=== PATIENT | male | born 1965 | race Caucasian/White ===

== ENCOUNTER 2018-11-24 08:00 | Outpatient (CLI) | payer BC | END 2018-11-24 23:59 | disposition home or self-care (01) | LOC: LAB.R 08:00 | PROVIDERS: ATTEND Family Medicine | DX: L98.9 Disorder of the skin and subcutaneous tissue, unspecified (principal) | CPT/HCPCS: 87070; 87205 ==

== ENCOUNTER 2019-03-30 11:15 | Outpatient (CLI) | payer BC ==
--- NOTE | 2019-03-30 14:09 | XRAY Report ---
Reason: COUGH Procedure Date: 03/30/2019 Accession Number: [id number] / [id number] Procedure: WCP - Chest 2 View X-Ray CPT Code: 29215 Final Report FULL RESULT: EXAM: CHEST RADIOGRAPHY EXAM DATE: 03/30/2019 11:15 AM. CLINICAL HISTORY: Cough. COMPARISON: None. TECHNIQUE: 2 views. FINDINGS: Lungs/Pleura: No focal opacities evident. No pleural effusion. No pneumothorax. Normal volumes. Mediastinum: Heart and mediastinal contours are unremarkable. Other: None. IMPRESSION: No acute cardiopulmonary abnormality. RADIA
== END 2019-03-30 23:59 | disposition home or self-care (01) ==
LOC: DI.WCP 11:15
PROVIDERS: ATTEND Family Medicine
DX: R05 Cough (principal)
CPT/HCPCS: 71046

== ENCOUNTER 2019-12-07 08:51 | Outpatient (CLI) | payer BC ==
--- NOTE | 2019-12-07 09:39 | SLEEP CARE CONSULTATION ---
Information from patient questionnaire entered by Adore Flores. I have reviewed and concur with the information entered by Adore Flores. This document represents the service I personally performed and the decisions made by me, Deya Huang ARNP. History of Present Illness Service Date and Time: 12/07/2019 0851 Reason for Visit: New patient Chief Complaint: reports: Snoring (occasional), Other (my work sent me here). denies: Insomnia, Unrefreshed sleep, Excessive daytime sleepiness, Observed pauses in breathing, Fatigue, Frequent awakenings at night Date of Onset: don't know Usual bedtime: 8:30 pm Time it takes to fall asleep: 20 minutes Snores at night: No (don't know) Observed to quit breathing while asleep: No Sleeps alone due to snoring: No Number of times waking at night: 1 Reasons for waking at night: reports: Bathroom. denies: Choking, Snoring, Gasping for air Toss, Turn, or Twitch while sleeping: No Recalls having dreams: No Usually gets out of bed at: 5 am; weekends by 0700 Feels refreshed in the morning: Yes Morning headache: No Sleepy or fatigued during the day: No Ever fallen asleep while driving: No Takes day naps: Yes (once a week at most) Dreams during day naps: No Prior sleep studies: No Additional HPI information: I had the pleasure of seeing EWA NORRIS today regarding the possibility of him having a sleep disorder. He states his work sent him here because he has to have a DOT physical for his job. He went to a new doctor who told him he needed a sleep study test but due to pandemic was unable to get study done. He went back to his original doctor who cleared him and updated his DOT physical. He got a letter from his job stating a requirement that he complete a sleep study to continue working. He states he does snore occasionally according to his . He states as long as he gets to sleep at a good hour and does not have interruptions during the night he wakes up feeling rested. He denies daily excessive sleepiness or fatigue. He gets up during the night for the bathroom about once a night. He denies morning headaches. He has a history of hypertension and anxiety. - Parasomnia Symptoms Ever been unable to move upon waking from sleep: No Walks in sleep: No Talks in sleep: No Ever acted out dreams in sleep: No Ever felt weak in the knees when startled or emotional: No Bothered by creepy, crawly, restless sensations in legs: No Problems with memory or concentration: No Subjective Initial [place] Sleepiness Scale score: 6 (in 2020) Past Medical History Past Medical History: reports: Hypertension, Anxiety. 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 Patient is and lives in [place]. Have you smoked in the past 12 months: No Alcohol use: Yes Alcohol amount and frequency: 2 drinks 2 times a week Caffeine use: Yes Caffeine amount and frequency: 1 cup every morning of work Family History Family history of sleep disordered breathing: No Family Hx Sleep Apnea: Mother: Snoring Allergies and Home Medications Drug allergies reviewed: Yes (codiene (nausea), khurram) Home medication list reviewed: Yes Allergy and home medication list: Lisinopril 20 mg citalopram for anxiety Review of Systems Cardiovascular: reports: high blood pressure. denies: palpitations, chest pain, irregular heart rate or pulse, leg or foot swelling Respiratory: denies: shortness of breath Gastrointestinal: denies: heartburn, difficulty swallowing Urinary: denies: impotence Neurological: denies: headaches, seizure, head trauma, speech dysfunction, gait or balance problems Psychiatric: reports: anxiety. denies: Attention Deficit Hyperactivity, depression Ear/Nose/Throat: reports: tonsillectomy. denies: nasal congestion, sinus problems, nose bleeds, dry mouth/throat, injury to nose, wisdom teeth removed Endocrine: denies: thyroid disease Musculoskeletal: denies: joint pain, back pain, muscle pain or cramping, mobility problems Immunologic: reports: allergies to food or environment (pistachio, spring allergies) Physical Exam Blood Pressure: 134/78 Cuff size: long Heart Rate: 76 O2 Saturation: 98 Height: 5 ft 7 in Weight: 206 lb Body Mass Index: 32.2 BMI Classification: Obese Neck circumference: 17.5 (inches) HEENT: No craniofacial malformation Nostrils: patent to airflow Turbinates: normal Septum: deviated left Mouth and throat: narrow oropharynx Soft palate: normal Hard palate: arched Uvula: normal Uvula visualization: 25% Mallampati Class III Tongue: enlarged in size with teeth dubose on lateral edges Tonsils: absent bilaterally Chin and jaw: normal size and position Neck: normal w/o lymphadenopathy or thyromegaly Heart: regular rate and rhythm Lungs: clear bilaterally Impression and Plan 1. Suspected Obstructive Sleep Apnea-Hypopnea Syndrome, as suggested by a history of snoring and hypertension. I reviewed with patient that a narrow oropharynx and obesity are common predisposing factors for obstructive sleep apnea-hypopnea syndrome. I recommend proceeding to polysomnography to confirm the diagnosis and to assess severity. If the patient has significant sleep disordered breathing, a manual CPAP titration study will also be performed to find the optimal treatment pressure. I informed the patient of what the sleep studies involve and after some discussion, obtained agreement to proceed. The pathophysiology of obstructive sleep apnea-hypopnea syndrome was discussed with the patient and health risks of cardiovascular and cerebrovascular disease if not treated. AAS brochure for obstructive sleep apnea-hypopnea syndrome given and reviewed. Risks of drowsy driving discussed in detail and patient advised to avoid long distance driving and to well puller at the first sign of drowsiness. Patient agreed to plan. * Schedule polysomnography +- manual CPAP titration study. * Avoid long distance driving or driving when feeling sleepy. * Avoid alcohol, sedative and muscle relaxant around bedtime. * Attempt to lose weight. * Review instructions provided by trained office staff on how to prepare for the sleep study. * Return for follow-up after sleep study completed. Time Spent with Patient (minutes): 32
[2019-12-07 09:40] VITALS: BP 134/78
== END 2019-12-07 08:52 | disposition home or self-care (01) ==
LOC: SC 08:51
PROVIDERS: ATTEND Nurse Practitioner Family
DX: R06.83 Snoring (principal); I10 Essential (primary) hypertension; E66.9 Obesity, unspecified; Z68.32 Body mass index [BMI] 32.0-32.9, adult
CPT/HCPCS: 99204; 99212

== ENCOUNTER → 2020-01-18 | Outpatient (CLI) | payer BC ==
--- NOTE | 2020-01-18 14:19 | SLEEP CARE CONSULTATION ---
Information from patient questionnaire entered by Sophia Hutchins. I have reviewed and concur with the information entered by Sophia Hutchins. This document represents the service I personally performed and the decisions made by , Deya Huang ARNP. History of Present Illness Service Date and Time: 01/18/2020 1037 Initial [place] Sleepiness Scale score: 6 (in 2020) Current [place] Sleepiness Scale score: 11 Additional HPI information: EWA NORRIS returns via Telehealth visit for follow up of results of the recently performed home sleep study. His HST showed mild obstructive sleep apnea with an AHI of 12.3 and a [place] oxygen saturation of 83%. I explained the pathophysiology behind obstructive sleep apnea. We then spent quite a bit of time discussing different treatment options. For mild obstructive sleep apnea, surgery and oral appliance are alternatives to nasal CPAP therapy but in moderate or severe cases, nasal CPAP is the most effective and reliable treatment. After some discussion, the patient opted to go with the nasal CPAP therapy. Nasal autoCPAP set at 4-15 cmH20 will be ordered with rationale explained. A manual titration study will be ordered if unable to find optimal pressure with office adjustments. I explained how CPAP machine works and what to expect when using the machine. Using CPAP every night in order to get used to it was emphasized. Patient advised to put CPAP mask on before getting into bed so as not to fall asleep without CPAP. To assist acclimation to CPAP use, it could also be used for a short time during day while reading or watching TV. The patient was instructed to call the CPAP supplier to discuss any mechanical problem that may occur. If the mask given is uncomfortable or is difficult to keep on through the night even with adjustment, contact the CPAP supplier as many will replace with another mask style if notified before 30 days. If snoring or perceives is not getting enough air or too much air from the machine, notify this office. Patient counseled not drink alcohol less than 4 hours before bedtime as it can increase snoring and apnea. Patient was cautioned about risks of drowsy driving until sleepiness symptoms resolve. Sleep Study - Results Type of Sleep Study: Home sleep study Prior sleep studies: No Year and Where: 12/2019 [facility] Sleep Study results: Patient had an average AHI of 12.3 with a [place] oxygen saturation of 83%. Please see details in scanned document of sleep care outside study on 01/18/2020. Allergies and Home Medications Drug allergies reviewed: Yes (codiene) Home medication list reviewed: Yes (no changes) Review of Systems Review of systems same as previous: Yes (no changes) Physical Exam Vital signs obtained and entered by: Telehealth visit, no vitals obtained Height: 5 ft 7 in Impression and Plan 1. Obstructive Sleep Apnea-Hypopnea Syndrome, mild, with lowest oxygen saturation of 83%. Obviously this is the cause of the patients symptoms of snoring and excessive daytime sleepiness. Positive pressure therapy could benefit hypertension and anxiety. As mentioned above, the patient will be started on nasal autoCPAP therapy with pressure set at 4-15 cmH2O. A manual titration study will be completed if unable to find optimal treatment pressure with office adjustments. Compliance guidelines also reviewed. A copy of compliance guidelines will be given for reference at check out. * Nasal auto CPAP therapy, pressure at 4-15 cm H2O. * Attempt to lose weight. * Avoid alcohol consumption near bedtime. * Avoid supine sleep until using CPAP. * The patient is again cautioned about driving until sleepiness completely resolves. * Return one month after CPAP obtained. I will assess response to therapy and compliance at that time. Counseling Topics: Weight loss health impact Visit Type: Telehealth Video Video Type: Doximity Patient Location: Home Location of Provider: Home Patient agrees and consents to this telehealth visit type: Yes Patient agrees to have their insurance billed: Yes Time Spent with Patient (minutes): 19 Provider Statement: I spent 100% of the Telehealth Video Call with the patient with greater than 50% spent counseling the patient and coordination of care.
== END ==
LOC: SC 10:37
PROVIDERS: ATTEND Nurse Practitioner Family
DX: G47.33 Obstructive sleep apnea (adult) (pediatric) (principal)

== ENCOUNTER 2020-07-31 10:31 | Outpatient (CLI) | payer BC ==
--- NOTE | 2020-07-31 11:07 | SLEEP CARE CONSULTATION ---
Information from patient questionnaire entered by Adore Flores. I have reviewed and concur with the information entered by Adore Flores. This document represents the service I personally performed and the decisions made by , Deya Huang ARNP. History of Present Illness Service Date and Time: 07/31/2020 1031 Previous diagnosis: Mild, Obstructive Sleep Apnea-Hypopnea Syndrome AHI: 12.3 (in 2019) Reason for follow up: first compliance Equipment type: CPAP Equipment obtained from: Other (Shannan Sauer, sleep motorcoach driver:) Mask style: Nasal pillows Mask brand: Resmed Backup mask available: No (will keep old mask when replaced) Last cushion change: 2 months Prior sleep studies: Yes Year and Where: 12/2019 - [facility] Type of Sleep Study: Home sleep study HPI additional information: EWA NORRIS was diagnosed to have mild, AHI 12.3, obstructive sleep apnea- hypopnea syndrome and returned today for CPAP therapy first compliance follow- up. CPAP Compliance Data - Data Reviewed with Patient Average duration of nightly device use: 7 hr 53 min Compliance rate %: 80 Current pressure setting (cmH2O): 4-15 (median 10.0, avg 12.9, max 14.3) Humidity settin Average residual AHI: 2.8 Subjective Missed days of use due to: reports: travel Patient concerns: denies: aerophagia, mask discomfort, air blowing in eyes, mask leak noise, condensation in mask/hose, nasal congestion, dry mouth, nose, throat, epistaxis, other Observed to snore while using device: No Current pressure setting perceived as: comfortable On therapy, patient: reports: sleeping better, awakening more refreshed, being more awake and alert during the day, more rested overall. denies: drowsiness while driving Initial [place] Sleepiness Scale score: 6 (in 2020) Current [place] Sleepiness Scale score: 6 Allergies and Home Medications Home medication list reviewed: Yes (no new meds) Review of Systems Review of systems same as previous: Yes (no changes) Physical Exam Heart Rate: 77 O2 Saturation: 96 Height: 5 ft 7 in Weight: 213 lb Body Mass Index: 33.3 BMI Classification: Obese Impression and Plan 1. Obstructive Sleep Apnea-Hypopnea Syndrome, mild, with good treatment com pliance and good apnea control. On CPAP therapy, the patient has better sleep quality and is more rested overall. I will adjust his pressure to reflect what he has been using to 12-15 cmH2O. Patient advised to contact me if pressure change is uncomfortable so that it can be adjusted. Goals for apnea control discussed. He has not complaints of aerophagia, mask discomfort, mask leak noise, nasal congestion, skin irritation or oral dryness. He will follow up in 1-2 months. He voiced understanding. Patient's apnea severity and rationale for treatment to reduce apnea, improve sleep quality and reduce cardiovascular and cerebrovascular events was reviewed. I also reviewed the benefit of consistent device use of CPAP for hypertension and anxiety. * Change auto CPAP pressure to 12-15 cmH2O * Notify me if snoring with mask or feeling that the pressure is too much or too little * Attempt to lose weight * Call this office if any problems using CPAP * Return for follow up in 1-2 months, or sooner if concerns arise Counseling Topics: Spare mask, Weight loss health impact Visit Type: In Office Time Spent with Patient (minutes): 21 Provider Statement: I spent 100% of the Face to Face Visit with the patient with greater than 50% spent counseling the patient and coordination of care.
== END 2020-07-31 10:32 | disposition home or self-care (01) ==
LOC: SC 10:31
PROVIDERS: ATTEND Nurse Practitioner Family
DX: G47.33 Obstructive sleep apnea (adult) (pediatric) (principal); E66.9 Obesity, unspecified; Z68.33 Body mass index [BMI] 33.0-33.9, adult
CPT/HCPCS: 99212; 99213

== ENCOUNTER 2020-08-14 08:00 | Outpatient (CLI) | payer BC ==
[2020-08-14 18:33] LABS: BASOPHILS # (AUTO) 0.1 10^3/uL (0.0-0.1); BASOPHILS % (AUTO) 0.8 %; EOSINOPHILS # (AUTO) 0.3 10^3/uL (0.0-0.7); EOSINOPHILS % (AUTO) 4.2 %; HCT - HEMATOCRIT 46.1 % (42.0-52.0); HGB - HEMOGLOBIN 14.9 g/dL (14.0-18.0); LYMPHOCYTES # (AUTO) 1.8 10^3/uL (1.5-3.5); LYMPHOCYTES % (AUTO) 29.6 %; MEAN CORPUSCULAR HEMOGLOBIN 32.6 pg (27.0-31.0); MEAN CORPUSCULAR HGB CONC 32.3 g/dL (32.0-36.0); MEAN CORPUSCULAR VOLUME 100.9 fL (80.0-94.0); MEAN PLATELET VOLUME 9.7 fL (7.4-11.4); MONOCYTES # (AUTO) 0.8 10^3/uL (0.0-1.0); MONOCYTES % (AUTO) 13.9 %; PLT - PLATELET COUNT 269 10^3/uL (130-450); RED BLOOD COUNT 4.57 10^6/uL (4.70-6.10); RED CELL DISTRIBUTION WIDTH 13.2 % (12.0-15.0); WHITE BLOOD COUNT 5.9 x10^3/uL (4.8-10.8)
[2020-08-14 18:44] LABS: ALBUMIN 4.4 g/dL (3.2-5.5); ALBUMIN/GLOBULIN RATIO 1.5 (1.0-2.2); ALKALINE PHOSPHATASE 74 IU/L (42-121); ALT ALANINE AMINOTRANSFERASE 31 IU/L (10-60); AST ASPARTATE AMINOTRANSFERASE 28 IU/L (10-42); BILIRUBIN,TOTAL 0.6 mg/dL (0.2-1.0); BUN - BLOOD UREA NITROGEN 15 mg/dL (6-20); CALCIUM 9.9 mg/dL (8.5-10.3); CARBON DIOXIDE - CO2 27 mmol/L (21-32); CHLORIDE 104 mmol/L (101-111); CHOL/HDL RATIO 2.6 (<5.0); CHOLESTEROL 137 mg/dL; CREATININE 0.9 mg/dL (0.6-1.2); GFR - MDRD 87 (>89); GLUCOSE 100 mg/dL (70-100); HDL CHOLESTEROL 52 mg/dL; LDL CHOLESTEROL,CALCULATED 31 mg/dL; LDL/HDL RATIO 0.6 (<3.6); POTASSIUM 4.4 mmol/L (3.5-5.0); SODIUM 140 mmol/L (135-145); TOTAL PROTEIN 7.4 g/dL (6.7-8.2); TRIGLYCERIDES 269 mg/dL; VLDL CHOLESTEROL 54 mg/dL
[2020-08-14 19:05] LABS: ESTIMATED AVERAGE GLUCOSE 114 mg/dL (70-100); HEMOGLOBIN A1c% 5.6 % (4.27-6.07)
== END 2020-08-14 23:59 | disposition home or self-care (01) ==
LOC: LAB.WCP 08:00
PROVIDERS: ATTEND Family Medicine
DX: I10 Essential (primary) hypertension (principal); E78.1 Pure hyperglyceridemia; R73.03 Prediabetes; Z12.5 Encounter for screening for malignant neoplasm of prostate
CPT/HCPCS: 36415; 80053; 80061; 83036; 83721; 84153; 85025

== ENCOUNTER 2020-09-27 16:48 | Outpatient (CLI) | payer BC ==
--- NOTE | 2020-09-27 17:12 | SLEEP CARE CONSULTATION ---
Information from patient questionnaire entered by Adore Flores. I have reviewed and concur with the information entered by Adore Flores. This document represents the service I personally performed and the decisions made by , Deya Huang ARNP. History of Present Illness Service Date and Time: 09/27/2020 1648 Previous diagnosis: Mild, Obstructive Sleep Apnea-Hypopnea Syndrome AHI: 12.3 (in 2019) Reason for follow up: other (2 month with pressure change) Equipment type: CPAP Equipment obtained from: Other ([facility]; getting supplies as needed) Mask style: Nasal pillows Backup mask available: No (will keep an old one when replaced) Last cushion change: washes daily Prior sleep studies: Yes Year and Where: 12/2019 - [facility] Type of Sleep Study: Home sleep study HPI additional information: EWA NORRIS was diagnosed to have mild, AHI 12.3, obstructive sleep apnea- hypopnea syndrome and returned today for CPAP therapy 2 month pressure change follow-up. CPAP Compliance Data - Data Reviewed with Patient Average duration of nightly device use: 7 hr 24 min Compliance rate %: 83 (60 days) Current pressure setting (cmH2O): 12-15 Humidity settin Average residual AHI: 2.1 Subjective Missed days of use due to: reports: family emergency Patient concerns: reports: condensation in mask/hose (one time but he had pulled the machine off side table and water got into hose). denies: aerophagia, mask discomfort, air blowing in eyes, mask leak noise, nasal congestion, dry mouth, nose, throat, epistaxis, other Observed to snore while using device: No Current pressure setting perceived as: comfortable On therapy, patient: reports: sleeping better, awakening more refreshed, being m ore awake and alert during the day, more rested overall. denies: drowsiness while driving Initial [place] Sleepiness Scale score: 6 (in 2020) Current [place] Sleepiness Scale score: 5 Allergies and Home Medications Home medication list reviewed: Yes (no changes) Review of Systems Review of systems same as previous: Yes (no changes) Physical Exam Heart Rate: 104 O2 Saturation: 98 Height: 5 ft 7 in Weight: 211 lb Body Mass Index: 33.0 BMI Classification: Obese Impression and Plan 1. Obstructive Sleep Apnea-Hypopnea Syndrome, mild, with good treatment compliance and good apnea control. On CPAP therapy, the patient has better sleep quality and is more rested overall. He is satisfied with his treatment and has significant improvement of his sleep apnea. He feels the pressure is comfortable at his current setting and has not been having any aerophagia. He is getting more comfortable with the CPAP mask and adjusting as needed. He had one night where he heard gurgling sounds that woke him up and found that he had pulled his CPAP off the nightstand and got water into the tubing. He has had no other issues with CPAP use. I will follow-up with him in about 3 months. Patient's apnea severity and rationale for treatment to reduce apnea, improve sleep quality and reduce cardiovascular and cerebrovascular events was reviewed. I also reviewed the benefit of consistent device use of CPAP for hypertension and anxiety. * Continue auto CPAP pressure at 12-15 cmH2O * Notify me if snoring with mask or feeling that the pressure is too much or too little * Attempt to lose weight * Call this office if any problems using CPAP * Return for follow up in 3 months, or sooner if concerns arise Counseling Topics: Spare mask, Weight loss health impact Visit Type: In Office Time Spent with Patient (minutes): 16 Provider Statement: I spent 100% of the Face to Face Visit with the patient with greater than 50% spent counseling the patient and coordination of care.
== END 2020-09-27 16:49 | disposition home or self-care (01) ==
LOC: SC 16:48
PROVIDERS: ATTEND Nurse Practitioner Family
DX: G47.33 Obstructive sleep apnea (adult) (pediatric) (principal); E66.9 Obesity, unspecified; Z68.33 Body mass index [BMI] 33.0-33.9, adult
CPT/HCPCS: 99212

== ENCOUNTER 2021-01-30 12:43 | Outpatient (CLI) | payer BC ==
[2021-01-30 13:24] VITALS: BP 140/74
--- NOTE | 2021-01-30 13:24 | SLEEP CARE CONSULTATION ---
Information from patient questionnaire entered by González Glaser MA. I have reviewed and concur with the information entered by González Glaser MA. This document represents the service I personally performed and the decisions made by , Deya Huang ARNP. History of Present Illness Service Date and Time: 01/30/2021 1243 Previous diagnosis: Mild, Obstructive Sleep Apnea-Hypopnea Syndrome AHI: 12.3 (in 2019) Reason for follow up: three month Equipment type: CPAP Equipment obtained from: [employer] (Shannan Sauer, sleep college coach: getting supplies as needed) Mask style: Nasal pillows Backup mask available: No (will keep old mask when replaced) Last cushion change: 4 weeks Prior sleep studies: Yes Year and Where: 12/2019 - [facility] Type of Sleep Study: Home sleep study HPI additional information: EWA NORRIS was diagnosed to have mild, AHI 12.3, obstructive sleep apnea- hypopnea syndrome and returned today for CPAP therapy three month follow-up. Sleep Study - Results Type of Sleep Study: Home sleep study Prior sleep studies: Yes Year and Where: 12/2019 - [facility] CPAP Compliance Data - Data Reviewed with Patient Average duration of nightly device use: 7 hours 18 minutes Compliance rate %: 59 Current pressure setting (cmH2O): 12-15 Average residual AHI: 1.7 Subjective Missed days of use due to: reports: family emergency (, had heart attack), mask issues (headgear strap broke), travel Patient concerns: denies: aerophagia, mask discomfort, air blowing in eyes, mask leak noise, condensation in mask/hose, nasal congestion, dry mouth, nose, throat, epistaxis, other Observed to snore while using device: No Current pressure setting perceived as: comfortable On therapy, patient: reports: sleeping better, awakening more refreshed, being more awake and alert during the day, more rested overall. denies: drowsiness while driving Initial [place] Sleepiness Scale score: 6 (in 2019) Current [place] Sleepiness Scale score: 5 (2020) Allergies and Home Medications Home medication list reviewed: Yes (no changes) Review of Systems Review of systems same as previous: Yes (no changes) Physical Exam Vital signs obtained and entered by: ROSS Cochran AAROBER Blood Pressure: 140/74 (left) Cuff size: wrist Heart Rate: 78 O2 Saturation: 92 (with mask) Height: 5 ft 7 in Weight: 209 lb (with boots) Body Mass Index: 32.7 BMI Classification: Obese Impression and Plan 1. Obstructive Sleep Apnea-Hypopnea Syndrome, mild, with fair treatment compliance and good apnea control. On CPAP therapy, the patient has better sleep quality and is more rested overall. Patient states he had to fly back home for a of a family member. While he was away his had a heart attack. So, he has been dealing with some family emergencies. He also got a new headset and other equipment and started using them. He states the headset strap broke and he cannot keep the mask on his face. I advised him to call his [employer] company as the headset may be defective so that he can get another one. He may end up having to pay for another headset so that he may use his CPAP mask. He voiced understanding and agreement with plan. Patient's apnea severity and rationale for treatment to reduce apnea, improve sleep quality and reduce cardiovascular and cerebrovascular events was reviewed. I also reviewed the benefit of consistent device use of CPAP for hypertension and anxiety. Patient was encouraged to lose weight for their overall health and to reduce apneas. * Continue auto CPAP pressure at 12-15 cmH2O * Notify me if snoring with mask or feeling that the pressure is too much or too little * Attempt to lose weight * Call this office if any problems using CPAP * Return for follow up in 6 months, or sooner if concerns arise Counseling Topics: Spare mask, Weight loss health impact Visit Type: In Office Time Spent with Patient (minutes): 20 Provider Statement: I spent 100% of the Face to Face Visit with the patient with greater than 50% spent counseling the patient and coordination of care.
== END 2021-01-30 12:44 | disposition home or self-care (01) ==
LOC: SC 12:43
PROVIDERS: ATTEND Nurse Practitioner Family
DX: G47.33 Obstructive sleep apnea (adult) (pediatric) (principal); E66.9 Obesity, unspecified; Z68.32 Body mass index [BMI] 32.0-32.9, adult
CPT/HCPCS: 99212; 99213

== ENCOUNTER 2021-07-17 11:27 | Outpatient (CLI) | payer BC ==
[2021-07-17 18:54] LABS: BASOPHILS # (AUTO) 0.1 10^3/uL (0.0-0.1); BASOPHILS % (AUTO) 1.1 %; EOSINOPHILS # (AUTO) 0.2 10^3/uL (0.0-0.7); EOSINOPHILS % (AUTO) 4.2 %; HCT - HEMATOCRIT 45.6 % (42.0-52.0); HGB - HEMOGLOBIN 14.7 g/dL (14.0-18.0); LYMPHOCYTES # (AUTO) 1.3 10^3/uL (1.5-3.5); LYMPHOCYTES % (AUTO) 24.6 %; MEAN CORPUSCULAR HEMOGLOBIN 32.2 pg (27.0-31.0); MEAN CORPUSCULAR HGB CONC 32.2 g/dL (32.0-36.0); MEAN CORPUSCULAR VOLUME 99.8 fL (80.0-94.0); MEAN PLATELET VOLUME 9.6 fL (7.4-11.4); MONOCYTES # (AUTO) 0.6 10^3/uL (0.0-1.0); MONOCYTES % (AUTO) 10.5 %; NEUTROPHILS # (AUTO) 3.1 10^3/uL (1.5-6.6); NEUTROPHILS % (AUTO) 59.4 %; PLT - PLATELET COUNT 271 10^3/uL (130-450); RED BLOOD COUNT 4.57 10^6/uL (4.70-6.10); RED CELL DISTRIBUTION WIDTH 13.5 % (12.0-15.0); WHITE BLOOD COUNT 5.3 x10^3/uL (4.8-10.8)
[2021-07-17 19:28] LABS: ALBUMIN 4.3 g/dL (3.2-5.5); ALBUMIN/GLOBULIN RATIO 1.3 (1.0-2.2); ALKALINE PHOSPHATASE 86 IU/L (42-121); ALT ALANINE AMINOTRANSFERASE 29 IU/L (10-60); AST ASPARTATE AMINOTRANSFERASE 26 IU/L (10-42); BILIRUBIN,TOTAL 0.7 mg/dL (0.2-1.0); BUN - BLOOD UREA NITROGEN 15 mg/dL (6-20); CALCIUM 9.3 mg/dL (8.5-10.3); CARBON DIOXIDE - CO2 26 mmol/L (21-32); CHLORIDE 103 mmol/L (101-111); CHOL/HDL RATIO 3.2 (<5.0); CHOLESTEROL 174 mg/dL; CREATININE 0.9 mg/dL (0.6-1.2); GFR - MDRD 87 (>89); GLUCOSE 84 mg/dL (70-100); HDL CHOLESTEROL 54 mg/dL; LDL CHOLESTEROL,CALCULATED 89 mg/dL; LDL/HDL RATIO 1.6 (<3.6); POTASSIUM 4.6 mmol/L (3.5-5.0); SODIUM 138 mmol/L (135-145); TOTAL PROTEIN 7.7 g/dL (6.7-8.2); TRIGLYCERIDES 154 mg/dL; VLDL CHOLESTEROL 31 mg/dL
== END 2021-07-17 11:28 | disposition home or self-care (01) ==
LOC: LAB.N 11:27
PROVIDERS: ATTEND Family Medicine
DX: I10 Essential (primary) hypertension (principal); E78.1 Pure hyperglyceridemia; Z12.5 Encounter for screening for malignant neoplasm of prostate
CPT/HCPCS: 36415; 80053; 80061; 83721; 84153; 85025

== ENCOUNTER 2023-03-11 11:41 | Outpatient (CLI) | payer BC ==
[2023-03-11 17:56] LABS: BASOPHILS % (AUTO) 0.5 %; EOSINOPHILS # (AUTO) 0.2 10^3/uL (0.0-0.7); EOSINOPHILS % (AUTO) 3.1 %; HCT - HEMATOCRIT 43.8 % (42.0-52.0); HGB - HEMOGLOBIN 14.5 g/dL (14.0-18.0); LYMPHOCYTES # (AUTO) 1.5 10^3/uL (1.5-3.5); MEAN CORPUSCULAR HGB CONC 33.1 g/dL (32.0-36.0); MEAN CORPUSCULAR VOLUME 99.5 fL (80.0-94.0); MEAN PLATELET VOLUME 9.6 fL (7.4-11.4); MONOCYTES # (AUTO) 0.6 10^3/uL (0.0-1.0); MONOCYTES % (AUTO) 10.2 %; NEUTROPHILS # (AUTO) 3.5 10^3/uL (1.5-6.6); NEUTROPHILS % (AUTO) 59.9 %; PLT - PLATELET COUNT 247 10^3/uL (130-450); RED CELL DISTRIBUTION WIDTH 12.8 % (12.0-15.0); WHITE BLOOD COUNT 5.8 x10^3/uL (4.8-10.8)
[2023-03-11 19:11] LABS: ALBUMIN 4.3 g/dL (3.2-5.5); ALBUMIN/GLOBULIN RATIO 1.6 (1.0-2.2); ALKALINE PHOSPHATASE 99 IU/L (42-121); ALT ALANINE AMINOTRANSFERASE 29 IU/L (10-60); AST ASPARTATE AMINOTRANSFERASE 22 IU/L (10-42); BILIRUBIN,TOTAL 0.5 mg/dL (0.2-1.0); BUN - BLOOD UREA NITROGEN 18 mg/dL (6-20); CALCIUM 9.3 mg/dL (8.5-10.3); CARBON DIOXIDE - CO2 30 mmol/L (21-32); CHLORIDE 102 mmol/L (101-111); CHOL/HDL RATIO 2.4 (<5.0); CHOLESTEROL 151 mg/dL; CREATININE 0.9 mg/dL (0.6-1.3); GFR - MDRD 87 (>89); GLUCOSE 103 mg/dL (74-104); HDL CHOLESTEROL 63 mg/dL; LDL CHOLESTEROL,CALCULATED 74 mg/dL; LDL/HDL RATIO 1.2 (<3.6); POTASSIUM 4.4 mmol/L (3.5-4.5); SODIUM 138 mmol/L (135-145); TRIGLYCERIDES 72 mg/dL (48-352); VLDL CHOLESTEROL 14 mg/dL
[2023-03-12 06:46] LABS: ESTIMATED AVERAGE GLUCOSE 111 mg/dL (70-100); HEMOGLOBIN A1c% 5.5 % (4.27-6.07)
== END 2023-03-11 11:42 | disposition home or self-care (01) ==
LOC: LAB.N 11:41
PROVIDERS: ATTEND Physician Assistant
DX: I10 Essential (primary) hypertension (principal); Z13.220 Encounter for screening for lipoid disorders; Z12.5 Encounter for screening for malignant neoplasm of prostate; R73.03 Prediabetes
CPT/HCPCS: 36415; 80053; 80061; 83036; 83721; 84153; 85025

== ENCOUNTER 2023-12-03 13:45 | Outpatient (CLI) | payer BC ==
--- NOTE | 2023-12-03 14:52 | Sleep Patient Instructions ---
Sleep Center Visit Summary - Patient Visit Information Reason for Visit: Annual follow-up - Patient Instructions Additional Instructions: You will continue with CPAP therapy with pressure set at 12-15 cmH2O. A supply prescription will be updated with your DME supplier. Please follow up with the sleep care office in 1 year. - Clinic Information Contact: [facility] [address] [place] [address] [email or web address] T: [phone]
--- NOTE | 2023-12-03 14:58 | SLEEP CARE CONSULTATION ---
Information from patient questionnaire entered by Gómez Pinto. I have reviewed and concur with the information entered by óGmez Pinto. This document represents the service I personally performed and the decisions made by , Deya Huang ARNP. History of Present Illness Service Date and Time: 12/03/2023 1345 Previous diagnosis: Mild, Obstructive Sleep Apnea-Hypopnea Syndrome AHI: 12.3 (in 2019) Reason for follow up: annual (Last seen 01/2021) Equipment type: CPAP (Airsense 10, s/) Equipment obtained from: [facility] (not getting supplies) Mask style: Nasal pillows Backup mask available: No Prior sleep studies: Yes Year and Where: 12/2019 - [facility] Type of Sleep Study: Home sleep study HPI additional information: EWA NORRIS was diagnosed to have mild, AHI 12.3, obstructive sleep apnea- hypopnea syndrome and returned today for CPAP therapy follow-up. Sleep Study - Results Type of Sleep Study: Home sleep study Prior sleep studies: Yes Year and Where: 12/2019 - [facility] CPAP Compliance Data - Data Reviewed with Patient Average duration of nightly device use: 7 h 49 min Compliance rate %: 50 (76%, 08/03/23-11/01/23) Current pressure setting (cmH2O): 12 - 15 Average residual AHI: 1.7 Central apnea: 0.9 Obstructive apnea: 0.3 Hypopnea: 0.4 Average large leak: 11.2 L/min Compliance data discussion: He was traveling and did not take it with him. Subjective Missed days of use due to: reports: travel Patient concerns: reports: nasal congestion. denies: aerophagia, mask discomfort, air blowing in eyes, mask leak noise, condensation in mask/hose, dry mouth, nose, throat, epistaxis Observed to snore while using device: No Current pressure setting perceived as: comfortable On therapy, patient: reports: sleeping better, awakening more refreshed, being more awake and alert during the day, more rested overall. denies: drowsiness while driving Initial [place] Sleepiness Scale score: 6 (in 2019) Current [place] Sleepiness Scale score: 6 (12/03/2023) Allergies and Home Medications Known drug allergies: No (pistachios) Drug allergies reviewed: Yes Home medication list reviewed: Yes (no changes) Allergy and home medication list: Allergies pistachio nut Allergy (Verified 12/03/23 14:34) Home Medications Medication Instructions Recorded Confirmed Last Taken Type Aspirin See Rx Instructions .ROUTE .COMPLEX 12/03/23 12/03/23 Unknown History Citalopram See Rx Instructions .ROUTE .COMPLEX 12/03/23 12/03/23 Unknown History Propranolol See Rx Instructions .ROUTE .COMPLEX 12/03/23 12/03/23 Unknown History Review of Systems Review of systems same as previous: Yes (no changes) Physical Exam Vital signs obtained and entered by: Deya Deshpande NP Blood Pressure: 147/88 Cuff size: long (right arm) Heart Rate: 68 O2 Saturation: 98 Height: 5 ft 7 in Weight: 211 lb Body Mass Index: 33.0 BMI Classification: Obese Impression and Plan 1. Obstructive Sleep Apnea-Hypopnea Syndrome, mild, with fair treatment compliance and good apnea control. On CPAP therapy, the patient has better sleep quality and is more rested overall. [place] and did not take his machine with him which affected his compliance but he has used his machine consistently in the past. Patient has significant improvement of their sleep apnea and is satisfied with current CPAP therapy. Patient denies problems with oral dryness, nasal congestion, epistaxis, skin irritation or aerophagia. Patient's apnea severity and rationale for treatment to reduce apnea, improve sleep quality and reduce cardiovascular and cerebrovascular events was reviewed. I also reviewed the benefit of consistent device use of CPAP for hypertension, anxiety. 2. Obesity, unspecified. Currently patients BMI is 33. Obesity increases the risk of apnea, CPAP pressure requirements and overall health risks especially cardiovascular and diabetes. Thus patient is advised to lose weight. * Continue auto CPAP pressure at 12-15 cmH2O * Update supply prescription. * Notify me if snoring with mask or feeling that the pressure is too much or too little * Attempt to lose weight * Call this office if any problems using CPAP * Return for follow up in 12 months, or sooner if concerns arise This note may have been all or partially generated using voice recognition software. Although every effort is made to edit content, competitive intelligence manager errors may occur. Occasional wrongword or "soundalike" substitutions may have occurred due to the inherent limitations of voice recognition software. Please read the note carefully and recognize, using context, where these substitutions have occurred. Counseling Topics: Spare mask, Weight loss health impact Prescriptions: Device supplies Follow up with Sleep Care in: 1 year Visit Type: In Office Time Spent with Patient (minutes): 23 Provider Statement: I spent 100% of the Face to Face Visit with the patient with greater than 50% spent counseling the patient and coordination of care.
[2023-12-03 15:03] VITALS: BP 147/88; O2SAT 98
== END 2023-12-03 13:46 | disposition home or self-care (01) ==
LOC: SC 13:45
PROVIDERS: ATTEND Nurse Practitioner Family
DX: G47.33 Obstructive sleep apnea (adult) (pediatric) (principal); E66.9 Obesity, unspecified; Z68.33 Body mass index [BMI] 33.0-33.9, adult
CPT/HCPCS: 99212; 99213